=== PATIENT | female | born 1950 | race Caucasian/White ===

== ENCOUNTER 2019-10-15 14:51 | Observation (INO) ==
[2019-10-15 15:37] LABS: Basophils % 0.1 %; Eosinophils # 0.1 K/mcL (0.0-0.6); Eosinophils % 0.6 %; Hemoglobin 6.6 g/dL (11.5-15.4); Immature Granulocytes % 0.3 % (0-4); Lymphocytes # 1.2 K/mcL (0.6-4.6); Lymphocytes % 15.5 %; Mean Corpuscular HGB Conc 24.4 g/dL (31.6-35.5); Mean Corpuscular Hemoglobin 16.5 pg (28.0-33.3); Mean Corpuscular Volume 67.7 fL (83.0-100.0); Mean Platelet Volume 9.6 fL (9.4-12.4); Monocytes # 0.7 K/mcL (0.0-1.3); Monocytes % 8.3 %; Platelet Count 538 K/mcL (140-400); Red Blood Count 3.99 M/mcL (3.82-4.97); Red Cell Distribution Width 19.9 % (11.5-14.5); Segmented Neutrophils % 75.2 %
[2019-10-15 15:52] LABS: BUN/Creatinine Ratio 13 (6-26); Blood Urea Nitrogen 8 mg/dL (8-23); Calcium 8.6 mg/dL (8.6-10.3); Carbon Dioxide 28 mEq/L (23-29); Chloride 99 mEq/L (98-107); Glucose 115 mg/dL (70-105); Osmolality,Calculated 277 (280-300); Potassium 2.5 mEq/L (3.5-5.1); Sodium 134 mEq/L (136-145); eGFR For African Americans > 60 (> 60); eGFR For Non-African Americans > 60 (> 60)
[2019-10-15] MEDS ORDERED: Potassium Effervescent 25 MEQ TABLET.EFF PO ONE (15:53)
[2019-10-15] MEDS ORDERED: Potassium Chloride 40 MEQ, Lidocaine 1% 2 ML in 0.9 % Sodium Chloride 500 ML IVPB ONE (15:53)
[2019-10-15 16:05] LABS: Hypochromasia Present (Not Present); Platelet Estimate Normal (Normal)
[2019-10-15 16:06] LABS: Anisocytosis 2+ (Not Present); Macrocytosis Present (Not Present); Microcytosis Present (Not Present); Ovalocytes 1+ (Not Present); Poikilocytosis 1+ (Not Present)
[2019-10-15 16:12] LABS: Magnesium 2.1 mg/dL (1.6-2.6); Phosphorous 3.5 mg/dL (2.7-4.5)
[2019-10-15] MEDS ORDERED: SODIUM CHLORIDE/NAHCO3/KCL/PEG 4,000 ML SOLN.RECON PO ONE (16:29)
[2019-10-15] MEDS ORDERED: Naloxone 0.4 MG/ML INJ IVP PRN (16:30)
[2019-10-15] MEDS ORDERED: Ondansetron 4 MG/2 ML VIAL IVP PRN (16:30)
[2019-10-15 16:58] LABS: % Iron Saturation 3 % (15-50); Iron 13 mcg/dL (50-170); Transferrin 346 mg/dL (203-362)
[2019-10-15] MEDS ORDERED: 0.9 % Sodium Chloride 250 ML ONE (17:14)
[2019-10-15 17:16] LABS: Ferritin < 8 ng/mL (10-120)
[2019-10-15 17:22] LABS: Folate 11.3 ng/mL (3.0-16.0)
[2019-10-15] MEDS ORDERED: Potassium Chloride Elixir 20 MEQ/15 ML UDC PO ONE (18:00)
[2019-10-15] MEDS: Cyanocobalamin (B-12) 1,000 MCG/ML VIAL SQ SCH (19:05)
[2019-10-15] MEDS ORDERED: Iron Sucrose Complex 400 MG in 0.9 % Sodium Chloride 250 ML IVPB ONE (19:15)
[2019-10-15] MEDS: Pantoprazole 40 MG VIAL IVP SCH (21:56)
[2019-10-15] MEDS ORDERED: *HR* HYDROmorphone (PF) 1 MG/ML SYRINGE IVP PRN (23:44)
[2019-10-16 00:46] LABS: Hematocrit 29.4 % (35.3-44.9); Hemoglobin 7.6 g/dL (11.5-15.4)
[2019-10-16 05:04] LABS: Eosinophils % 0.8 %; Hemoglobin 7.8 g/dL (11.5-15.4)
[2019-10-16 05:05] LABS: Basophils % 0.3 %; Eosinophils # 0.1 K/mcL (0.0-0.6); Hematocrit 30.4 % (35.3-44.9); Immature Granulocytes % 0.8 % (0-4); Lymphocytes # 1.4 K/mcL (0.6-4.6); Mean Corpuscular HGB Conc 25.7 g/dL (31.6-35.5); Mean Corpuscular Hemoglobin 18.3 pg (28.0-33.3); Mean Corpuscular Volume 71.2 fL (83.0-100.0); Mean Platelet Volume 9.5 fL (9.4-12.4); Monocytes # 0.7 K/mcL (0.0-1.3); Monocytes % 9.1 %; Platelet Count 492 K/mcL (140-400); Red Blood Count 4.27 M/mcL (3.82-4.97); Red Cell Distribution Width 21.7 % (11.5-14.5); White Blood Count 7.8 K/mcL (4.3-11.1)
[2019-10-16 05:15] LABS: Neutrophils # 5.5 K/mcL (1.6-8.9)
[2019-10-16] MEDS: Pantoprazole 40 MG VIAL IVP SCH ×2 (05:28→17:18)
[2019-10-16 05:30] LABS: BUN/Creatinine Ratio 9 (6-26); Blood Urea Nitrogen 5 mg/dL (8-23); Calcium 8.1 mg/dL (8.6-10.3); Carbon Dioxide 22 mEq/L (23-29); Chloride 109 mEq/L (98-107); Glucose 99 mg/dL (70-105); Osmolality,Calculated 285 (280-300); Potassium 3.8 mEq/L (3.5-5.1); Sodium 139 mEq/L (136-145); eGFR For African Americans > 60 (> 60); eGFR For Non-African Americans > 60 (> 60)
[2019-10-16 05:44] LABS: Anisocytosis 1+ (Not Present); Hypochromasia Present (Not Present); Poikilocytosis 1+ (Not Present)
[2019-10-16 05:45] LABS: Ovalocytes 1+ (Not Present); Polychromasia 1+ (Not Present)
[2019-10-16] MEDS ORDERED: Acetaminophen IV 1,000 MG/100 ML INFUS..BTL IVPB ONE (05:45)
[2019-10-16 08:27] LABS: Hematocrit 26.4 % (35.3-44.9)
[2019-10-16] MEDS ORDERED: *HR* HYDROcodone/Acet 5/325 mg TABLET PO PRN (10:49)
[2019-10-16] MEDS: Cyanocobalamin (B-12) 1,000 MCG/ML VIAL SQ SCH (10:50)
[2019-10-16 11:53] LABS: Adenovirus Not Detected (Not Detect); Bordetella Pertussis Not Detected (Not Detect); Chlamydophila pneumoniae Not Detected (Not Detect); Coronavirus 229E Not Detected (Not Detect); Coronavirus HKU1 Not Detected (Not Detect); Coronavirus NL63 Not Detected (Not Detect); Coronavirus OC43 Not Detected (Not Detect); Human Metapneumovirus Not Detected (Not Detect); Human Rhinovirus/Enterovirus Not Detected (Not Detect); Influenza A Subtype 2009 H1 Not Detected (Not Detect); Influenza B Not Detected (Not Detect); Mycoplasma pneumoniae Not Detected (Not Detect); Parainfluenza Virus 1 Not Detected (Not Detect); Parainfluenza Virus 2 Not Detected (Not Detect); Parainfluenza Virus 3 Not Detected (Not Detect); Parainfluenza Virus 4 Not Detected (Not Detect); Respiratory Syncytial Virus Not Detected (Not Detect); SARS-CoV-2 Not Detected (Not Detect)
[2019-10-16 13:40] LABS: Hematocrit 27.2 % (35.3-44.9); Hemoglobin 7.3 g/dL (11.5-15.4)
[2019-10-16 19:42] LABS: Hematocrit 31.1 % (35.3-44.9); Hemoglobin 7.9 g/dL (11.5-15.4)
[2019-10-17 02:14] LABS: Hematocrit 27.5 % (35.3-44.9); Hemoglobin 7.3 g/dL (11.5-15.4)
[2019-10-17] MEDS: Pantoprazole 40 MG VIAL IVP SCH (05:31)
[2019-10-17 07:27] LABS: Hematocrit 30.8 % (35.3-44.9); Hemoglobin 7.9 g/dL (11.5-15.4)
[2019-10-17] MEDS ORDERED: *HR* Propofol 200 MG/20 ML VIAL IVP ONE ×3 (10:33→11:15)
[2019-10-17] MEDS ORDERED: Lidocaine -MPF 2% 2 ML VIAL ONE (10:57)
[2019-10-17] MEDS: Cyanocobalamin (B-12) 1,000 MCG/ML VIAL SQ SCH (13:15)
[2019-10-17 14:45] VITALS: BP 127/72
== END 2019-10-17 14:22 | disposition home or self-care (01) ==
LOC: 3ANU 14:51 → EMEROOARM 14:51 → 3ANU 18:10
PROVIDERS: ADMIT Internal Medicine; ATTEND Internal Medicine
PROC: ENDOORB (2019-10-17 09:00)

== ENCOUNTER 2020-09-30 12:49 | Inpatient (IN) ==
[2020-09-30 13:24] LABS: Hematocrit 41.9 % (35.3-44.9); Hemoglobin 13.7 g/dL (11.5-15.4); Mean Corpuscular HGB Conc 32.7 g/dL (31.6-35.5); Mean Corpuscular Hemoglobin 28.7 pg (28.0-33.3); Mean Corpuscular Volume 87.7 fL (83.0-100.0); Mean Platelet Volume 10.3 fL (9.4-12.4); Platelet Count 241 K/mcL (140-400); Red Blood Count 4.78 M/mcL (3.82-4.97); Red Cell Distribution Width 13.5 % (11.5-14.5)
[2020-09-30 13:27] LABS: White Blood Count 20.4 K/mcL (4.3-11.1)
[2020-09-30 13:43] LABS: BUN/Creatinine Ratio 15 (6-26); Blood Urea Nitrogen 13 mg/dL (8-23); Calcium 8.4 mg/dL (8.6-10.3); Carbon Dioxide 20 mEq/L (23-29); Chloride 101 mEq/L (98-107); Glucose 114 mg/dL (70-105); Osmolality,Calculated 277 (280-300); Potassium 3.4 mEq/L (3.5-5.1); Sodium 133 mEq/L (136-145); eGFR For African Americans > 60 (> 60); eGFR For Non-African Americans > 60 (> 60)
[2020-09-30 13:48] LABS: Lymphocytes # 3.7 K/mcL (0.6-4.6); Monocytes # 0.8 K/mcL (0.0-1.3); Neutrophils # 15.9 K/mcL (1.6-8.9); Platelet Estimate Normal (Normal)
[2020-09-30 14:01] LABS: Troponin I 0.06 ng/mL (< 0.04)
[2020-09-30] MEDS ORDERED: cefTRIAXone 1,000 MG in 0.9 % Sodium Chloride Mini Bag 100 ML IVPB ONE (14:17)
[2020-09-30] MEDS ORDERED: Azithromycin 500 MG in 0.9 % Sodium Chloride 250 ML IVPB ONE (14:17)
[2020-09-30] MEDS ORDERED: 0.9 % Sodium Chloride 1,000 ML IVC ONE (15:27)
[2020-09-30] MEDS ORDERED: Naloxone 0.4 MG/ML INJ IVP PRN (16:37)
[2020-09-30] MEDS ORDERED: Melatonin 3 MG TABLET PO PRN (16:37)
[2020-09-30] MEDS ORDERED: Perflutren Lipid Microsphere 1.3 ML in 0.9 % Sodium Chloride 8.7 ML IVP PRN (16:47)
[2020-09-30] MEDS ORDERED: Potassium Chloride 20 MEQ, Lidocaine 1% 2 ML in 0.9 % Sodium Chloride 250 ML IVPB ONE (16:52)
[2020-09-30] MEDS ORDERED: Potassium Chloride Elixir 20 MEQ/15 ML UDC PO ONE (16:52)
[2020-09-30 17:13] LABS: Magnesium 1.8 mg/dL (1.6-2.6); Phosphorous 2.6 mg/dL (2.7-4.5)
[2020-09-30 18:35] LABS: Influenza A PCR Negative (Negative); Influenza B PCR Negative (Negative); Resp. Syncytial Virus PCR Negative (Negative)
[2020-09-30 18:35] LABS: Procalcitonin 1.96 ng/mL (0.00-0.15)
[2020-09-30 18:36] LABS: SARS-CoV-2 by PCR (In House) Negative (Negative)
[2020-09-30 18:59] LABS: Vitamin B12 > 1500 pg/mL (250-1100)
[2020-09-30] MEDS: *HR* Heparin 5,000 UNIT/ML VIAL SQ SCH (20:25)
[2020-09-30 20:30] LABS: Bacteria,Urine Moderate per hpf (None-Few); Bilirubin,Urine Negative (Negative); Blood,Urine Small (Negative); Clarity,Urine Clear (Clear); Color,Urine Yellow (Yellow); Glucose,Urine (UA) Normal (Normal); Hyaline Casts,Urine Few per lpf (None Seen); Ketones,Urine 60 mg/dL (Negative); Leukocyte Esterase,Urine Moderate (Negative); Mucus,Urine Few per lpf (None-Few); Nitrite,Urine Positive (Negative); Protein,Urine 30 mg/dL (Neg-Trace); RBC,Urine 0-3 per hpf (0-3); Specific Gravity,Urine 1.017 (1.010-1.025); Urobilinogen,Urine Normal (Normal); WBC,Urine 15-30 per hpf (0-3)
[2020-09-30] MEDS: *HR* OxyCODONE Immed Rel 5 MG TABLET PO PRN (21:42)
[2020-10-01] MEDS ORDERED: Acetaminophen 325 MG TABLET PO PRN (00:14)
[2020-10-01 01:35] LABS: Basophils # 0.1 K/mcL (0.0-0.2); Basophils % 0.3 %; Eosinophils % 0.2 %; Hematocrit 40.3 % (35.3-44.9); Hemoglobin 12.6 g/dL (11.5-15.4); Immature Granulocytes % 0.7 % (0-4); Lymphocytes % 3.8 %; Mean Corpuscular HGB Conc 31.3 g/dL (31.6-35.5); Mean Corpuscular Hemoglobin 27.8 pg (28.0-33.3); Mean Corpuscular Volume 88.8 fL (83.0-100.0); Mean Platelet Volume 10.5 fL (9.4-12.4); Monocytes # 1.6 K/mcL (0.0-1.3); Monocytes % 6.4 %; Platelet Count 235 K/mcL (140-400); Red Blood Count 4.54 M/mcL (3.82-4.97); Red Cell Distribution Width 13.5 % (11.5-14.5); Segmented Neutrophils % 88.6 %
[2020-10-01 01:40] LABS: Eosinophils # 0.1 K/mcL (0.0-0.6); Neutrophils # 22.2 K/mcL (1.6-8.9)
[2020-10-01 02:03] LABS: BUN/Creatinine Ratio 16 (6-26); Blood Urea Nitrogen 12 mg/dL (8-23); Calcium 7.8 mg/dL (8.6-10.3); Carbon Dioxide 16 mEq/L (23-29); Chloride 106 mEq/L (98-107); Glucose 108 mg/dL (70-105); Iron < 10 mcg/dL (50-170); Osmolality,Calculated 278 (280-300); Potassium 3.9 mEq/L (3.5-5.1); Sodium 134 mEq/L (136-145); eGFR For African Americans > 60 (> 60); eGFR For Non-African Americans > 60 (> 60)
[2020-10-01 03:07] LABS: Transferrin 189 mg/dL (203-362)
[2020-10-01] MEDS ORDERED: *HR* Metoprolol 5 MG/5 ML VIAL IVP ONE ×3 (04:04→14:09)
[2020-10-01] MEDS: *HR* Heparin 5,000 UNIT/ML VIAL SQ SCH ×2 (05:32→13:48)
[2020-10-01] MEDS ORDERED: 0.9 % Sodium Chloride 1,000 ML IVC SCH (07:45)
[2020-10-01] MEDS ORDERED: cefTRIAXone 1,000 MG in Water for inj. (sterile) 10 ML IVP SCH (09:00)
[2020-10-01] MEDS ORDERED: Azithromycin 250 MG TABLET PO SCH (09:00)
[2020-10-01] MEDS: amLODIPine 5 MG TABLET PO SCH (09:24)
[2020-10-01] MEDS ORDERED: Furosemide 20 MG/2 ML VIAL IVP ONE (10:52)
[2020-10-01] MEDS: Ipratropium/Albuterol Neb 3 ML IH SCH ×3 (13:34→21:47)
[2020-10-01] MEDS ORDERED: *HR* Adenosine 6 MG/2 ML VIAL IVP ONE ×2 (14:11→14:12)
[2020-10-01] MEDS ORDERED: Perflutren Lipid Microsphere 1.3 ML in 0.9 % Sodium Chloride 8.7 ML IVP PRN (14:18)
[2020-10-01] MEDS ORDERED: *HR* Heparin 5,000 UNIT/ML VIAL IVP PRN (17:48)
[2020-10-01] MEDS ORDERED: *HR* Heparin 5,000 UNIT/ML VIAL IVP ONE (17:48)
[2020-10-01] MEDS ORDERED: Doxycycline 100 MG in 0.9 % Sodium Chloride Mini Bag 100 ML IVPB SCH (18:00)
[2020-10-01 18:50] LABS: Heparin anti-factor XA UFH < 0.04 IU/mL (0.30-0.70)
[2020-10-01 18:51] LABS: INR 1.3; Prothrombin Time 14.5 Seconds (9.4-12.1)
[2020-10-01] MEDS: Heparin 25,000UNIT/250ML 1/2NS 25,000 UNIT/250 ML IV.SOLN IVC SCH (20:04)
[2020-10-01] MEDS: *HR* OxyCODONE Immed Rel 5 MG TABLET PO PRN (21:43)
[2020-10-02 02:13] LABS: Red Cell Distribution Width 13.6 % (11.5-14.5)
[2020-10-02 02:14] LABS: Hematocrit 41.5 % (35.3-44.9); Hemoglobin 13.3 g/dL (11.5-15.4); Mean Corpuscular Hemoglobin 27.5 pg (28.0-33.3); Mean Corpuscular Volume 85.7 fL (83.0-100.0); Mean Platelet Volume 10.7 fL (9.4-12.4); Platelet Count 255 K/mcL (140-400); Red Blood Count 4.84 M/mcL (3.82-4.97)
[2020-10-02 02:25] LABS: White Blood Count 39.8 K/mcL (4.3-11.1)
[2020-10-02 02:32] LABS: BUN/Creatinine Ratio 21 (6-26); Blood Urea Nitrogen 14 mg/dL (8-23); Calcium 7.8 mg/dL (8.6-10.3); Carbon Dioxide 16 mEq/L (23-29); Chloride 104 mEq/L (98-107); Glucose 146 mg/dL (70-105); Osmolality,Calculated 279 (280-300); Potassium 3.5 mEq/L (3.5-5.1); Sodium 133 mEq/L (136-145); eGFR For African Americans > 60 (> 60); eGFR For Non-African Americans > 60 (> 60)
[2020-10-02] MEDS: *HR* Heparin 5,000 UNIT/ML VIAL IVP PRN (03:43)
[2020-10-02] MEDS: Cefepime HCl 1,000 MG in Water for inj. (sterile) 10 ML IVP SCH ×3 (03:44→18:18)
[2020-10-02] MEDS: Ipratropium/Albuterol Neb 3 ML IH SCH ×3 (05:15→15:19)
[2020-10-02] MEDS: amLODIPine 5 MG TABLET PO SCH (07:25)
[2020-10-02] MEDS ORDERED: Isovue-370 500 ML BOTTLE IVP ONE (11:29)
[2020-10-02 13:00] LABS: Campylobacter by PCR Not detected (Not detect); Enteroaggregative E.coli(EAEC) Not detected (Not detect); Enteropathogenic E.coli(EPEC) Not detected (Not detect); Enterotoxigenic E.coli (ETEC) DETECTED (Not detect); Plesiomonas shigelloides PCR Not detected (Not detect); Salmonella PCR Not detected (Not detect); Vibrio PCR Not detected (Not detect); Vibrio cholerae PCR Not detected (Not detect); Yersinia enterocolitica PCR Not detected (Not detect)
[2020-10-02 13:01] LABS: Adenovirus F 40/41 PCR Not detected (Not detect); Astrovirus PCR Not detected (Not detect); Cryptosporidium by PCR Not detected (Not detect); Cyclospora cayetanensis PCR Not detected (Not detect); E. coli O157 by PCR Not detected (Not detect); Entamoeba histolytica PCR Not detected (Not detect); Giardia lamblia PCR Not detected (Not detect); Norovirus GI/GII PCR Not detected (Not detect); Rotavirus A PCR Not detected (Not detect); Sapovirus PCR Not detected (Not detect); Shig/EnteroinvasiveE coli EIEC Not detected (Not detect); Shigalike tox-prod E coli STEC DETECTED (Not detect)
[2020-10-02] MEDS: *HR* Metoprolol 5 MG/5 ML VIAL IVP PRN ×2 (13:02→17:02)
[2020-10-02 13:03] LABS: C.difficile Toxin A/B Gene PCR DETECTED (Not detect)
[2020-10-02] MEDS ORDERED: 0.9 % Sodium Chloride 1,000 ML ONE (16:21)
[2020-10-02] MEDS ORDERED: Potassium Chloride 40 MEQ, Lidocaine 1% 2 ML in 0.9 % Sodium Chloride 500 ML IVPB ONE (17:32)
[2020-10-02] MEDS ORDERED: Ipratropium Neb 0.5 MG NEBULIZER IH PRN (17:33)
[2020-10-02] MEDS: Aspirin Enteric Coated 81 MG Tablet PO SCH (17:58)
[2020-10-02] MEDS: Vancomycin Oral Soln 125 MG/2.5 ML UDC PO SCH ×3 (17:59→20:53)
[2020-10-02] MEDS ORDERED: 0.9 % Sodium Chloride 1,000 ML IVC SCH (18:30)
[2020-10-02] MEDS: Heparin 25,000UNIT/250ML 1/2NS 25,000 UNIT/250 ML IV.SOLN IVC SCH (19:16)
[2020-10-03 00:42] LABS: Basophils % 0.5 %; Eosinophils % 0.2 %; Mean Corpuscular Volume 87.4 fL (83.0-100.0); Segmented Neutrophils % 88.2 %
[2020-10-03 00:45] LABS: Basophils # 0.2 K/mcL (0.0-0.2); Eosinophils # 0.1 K/mcL (0.0-0.6); Hematocrit 36.6 % (35.3-44.9); Hemoglobin 11.9 g/dL (11.5-15.4); Immature Granulocytes % 1.4 % (0-4); Lymphocytes # 1.4 K/mcL (0.6-4.6); Lymphocytes % 4.1 %; Mean Corpuscular HGB Conc 32.5 g/dL (31.6-35.5); Mean Corpuscular Hemoglobin 28.4 pg (28.0-33.3); Mean Platelet Volume 10.8 fL (9.4-12.4); Monocytes # 1.9 K/mcL (0.0-1.3); Monocytes % 5.6 %; Neutrophils # 29.3 K/mcL (1.6-8.9); Platelet Count 223 K/mcL (140-400); Red Blood Count 4.19 M/mcL (3.82-4.97)
[2020-10-03 00:50] LABS: White Blood Count 33.2 K/mcL (4.3-11.1)
[2020-10-03] MEDS: *HR* Heparin 5,000 UNIT/ML VIAL IVP PRN (01:00)
[2020-10-03] MEDS: Cefepime HCl 1,000 MG in Water for inj. (sterile) 10 ML IVP SCH ×2 (02:16→10:02)
[2020-10-03] MEDS ORDERED: Vancomycin 1,000 MG VIAL ONE (02:17)
[2020-10-03] MEDS: *HR* Heparin 5,000 UNIT/ML VIAL SQ SCH ×3 (05:26→22:52)
[2020-10-03 07:51] LABS: Alanine Aminotransferase 10 Units/L (7-52); Albumin 2.4 g/dL (3.5-5.7); Albumin/Globulin Ratio 1.1 (1.1-2.2); Alkaline Phosphatase 95 Units/L (34-104); Aspartate Amino Transferase 12 Units/L (13-39); BUN/Creatinine Ratio 18 (6-26); Bilirubin,Total 0.4 mg/dL (0.3-1.0); Blood Urea Nitrogen 12 mg/dL (8-23); Calcium 7.1 mg/dL (8.6-10.3); Carbon Dioxide 18 mEq/L (23-29); Chloride 108 mEq/L (98-107); Globulin 2.1 g/dL (2.4-3.5); Glucose 112 mg/dL (70-105); Osmolality,Calculated 277 (280-300); Potassium 3.3 mEq/L (3.5-5.1); Sodium 133 mEq/L (136-145); Total Protein 4.5 g/dL (6.4-8.9); eGFR For African Americans > 60 (> 60); eGFR For Non-African Americans > 60 (> 60)
[2020-10-03] MEDS ORDERED: 0.9 % Sodium Chloride 1,000 ML IVC SCH (09:30)
[2020-10-03] MEDS: amLODIPine 5 MG TABLET PO SCH (10:02)
[2020-10-03] MEDS: Aspirin Enteric Coated 81 MG Tablet PO SCH (10:02)
[2020-10-03] MEDS: Vancomycin Oral Soln 125 MG/2.5 ML UDC PO SCH ×4 (10:03→22:51)
[2020-10-03] MEDS: Lactobacillus 1 EACH CAP.SPRINK PO SCH ×2 (11:40→22:49)
[2020-10-04] MEDS: *HR* Heparin 5,000 UNIT/ML VIAL SQ SCH ×3 (06:52→21:47)
[2020-10-04] MEDS: Lactobacillus 1 EACH CAP.SPRINK PO SCH ×2 (09:56→21:48)
[2020-10-04] MEDS: amLODIPine 5 MG TABLET PO SCH (09:56)
[2020-10-04] MEDS: Aspirin Enteric Coated 81 MG Tablet PO SCH (09:56)
[2020-10-04] MEDS: Vancomycin Oral Soln 125 MG/2.5 ML UDC PO SCH ×4 (09:57→21:48)
[2020-10-04] MEDS ORDERED: Potassium Chloride Elixir 20 MEQ/15 ML UDC PO ONE (14:58)
[2020-10-04] MEDS ORDERED: Azithromycin 250 MG TABLET PO ONE (15:00)
[2020-10-04 16:22] LABS: Basophils % 0.3 %; Eosinophils # 0.4 K/mcL (0.0-0.6); Eosinophils % 2.9 %; Hemoglobin 11.2 g/dL (11.5-15.4); Immature Granulocytes % 2.1 % (0-4); Lymphocytes # 1.1 K/mcL (0.6-4.6); Lymphocytes % 8.1 %; Mean Corpuscular Hemoglobin 27.7 pg (28.0-33.3); Mean Corpuscular Volume 86.4 fL (83.0-100.0); Mean Platelet Volume 10.8 fL (9.4-12.4); Monocytes % 7.6 %; Neutrophils # 10.7 K/mcL (1.6-8.9); Platelet Count 260 K/mcL (140-400); Red Blood Count 4.05 M/mcL (3.82-4.97)
[2020-10-04 16:23] LABS: White Blood Count 13.6 K/mcL (4.3-11.1)
[2020-10-04 16:38] LABS: BUN/Creatinine Ratio 16 (6-26); Blood Urea Nitrogen 8 mg/dL (8-23); Calcium 7.2 mg/dL (8.6-10.3); Carbon Dioxide 20 mEq/L (23-29); Chloride 104 mEq/L (98-107); Glucose 116 mg/dL (70-105); Osmolality,Calculated 269 (280-300); Potassium 2.9 mEq/L (3.5-5.1); Sodium 130 mEq/L (136-145); eGFR For African Americans > 60 (> 60); eGFR For Non-African Americans > 60 (> 60)
[2020-10-05 02:43] LABS: Basophils # 0.1 K/mcL (0.0-0.2); Basophils % 0.4 %; Eosinophils # 0.3 K/mcL (0.0-0.6); Eosinophils % 2.2 %; Hematocrit 37.6 % (35.3-44.9); Hemoglobin 11.8 g/dL (11.5-15.4); Immature Granulocytes % 1.5 % (0-4); Lymphocytes # 1.1 K/mcL (0.6-4.6); Lymphocytes % 7.9 %; Mean Corpuscular HGB Conc 31.4 g/dL (31.6-35.5); Mean Corpuscular Hemoglobin 27.3 pg (28.0-33.3); Mean Corpuscular Volume 86.8 fL (83.0-100.0); Mean Platelet Volume 10.9 fL (9.4-12.4); Monocytes # 1.1 K/mcL (0.0-1.3); Monocytes % 8.4 %; Neutrophils # 10.7 K/mcL (1.6-8.9); Platelet Count 265 K/mcL (140-400); Red Blood Count 4.33 M/mcL (3.82-4.97); Red Cell Distribution Width 13.9 % (11.5-14.5); Segmented Neutrophils % 79.6 %; White Blood Count 13.4 K/mcL (4.3-11.1)
[2020-10-05 03:04] LABS: BUN/Creatinine Ratio 13 (6-26); Blood Urea Nitrogen 6 mg/dL (8-23); Calcium 7.3 mg/dL (8.6-10.3); Carbon Dioxide 16 mEq/L (23-29); Chloride 105 mEq/L (98-107); Glucose 98 mg/dL (70-105); Osmolality,Calculated 272 (280-300); Potassium 2.8 mEq/L (3.5-5.1); Sodium 132 mEq/L (136-145); eGFR For African Americans > 60 (> 60); eGFR For Non-African Americans > 60 (> 60)
[2020-10-05] MEDS: *HR* Heparin 5,000 UNIT/ML VIAL SQ SCH ×3 (05:01→20:54)
[2020-10-05] MEDS: Aspirin Enteric Coated 81 MG Tablet PO SCH (09:29)
[2020-10-05] MEDS: Vancomycin Oral Soln 125 MG/2.5 ML UDC PO SCH ×4 (09:29→20:54)
[2020-10-05] MEDS: amLODIPine 5 MG TABLET PO SCH (09:29)
[2020-10-05] MEDS: Lactobacillus 1 EACH CAP.SPRINK PO SCH ×2 (09:29→20:54)
[2020-10-05] MEDS ORDERED: POTASSIUM CHLORIDE IN 0.9%NACL 40 MEQ/1,000 ML IV.SOLN IV STA (12:10)
[2020-10-05] MEDS: Potassium Chloride 40 MEQ, Lidocaine 1% 2 ML in 0.9 % Sodium Chloride 500 ML IVPB SCH ×2 (13:30→17:55)
[2020-10-05 14:22] LABS: Troponin I 0.42 ng/mL (< 0.04)
[2020-10-05 14:31] LABS: Magnesium 1.8 mg/dL (1.6-2.6); Phosphorous 1.8 mg/dL (2.7-4.5)
[2020-10-05] MEDS: Cholestyramine 4 GM POWD.PACK PO SCH (17:58)
[2020-10-06] MEDS: *HR* Heparin 5,000 UNIT/ML VIAL SQ SCH ×3 (05:17→22:36)
[2020-10-06] MEDS: Vancomycin Oral Soln 125 MG/2.5 ML UDC PO SCH ×4 (09:03→22:36)
[2020-10-06] MEDS: amLODIPine 5 MG TABLET PO SCH (09:03)
[2020-10-06] MEDS: Cholestyramine 4 GM POWD.PACK PO SCH ×2 (09:03→17:12)
[2020-10-06] MEDS: Lactobacillus 1 EACH CAP.SPRINK PO SCH ×2 (09:03→22:35)
[2020-10-06] MEDS: Aspirin Enteric Coated 81 MG Tablet PO SCH (09:03)
[2020-10-06] MEDS: Nystatin POWDER 30 GM BOTTLE TP SCH ×2 (17:12→22:36)
[2020-10-06 20:02] LABS: Basophils # 0.1 K/mcL (0.0-0.2); Basophils % 0.3 %; Eosinophils # 0.4 K/mcL (0.0-0.6); Eosinophils % 1.7 %; Hemoglobin 11.9 g/dL (11.5-15.4); Immature Granulocytes % 1.4 % (0-4); Lymphocytes # 1.5 K/mcL (0.6-4.6); Lymphocytes % 7.3 %; Mean Corpuscular HGB Conc 32.2 g/dL (31.6-35.5); Mean Corpuscular Hemoglobin 27.8 pg (28.0-33.3); Mean Corpuscular Volume 86.4 fL (83.0-100.0); Mean Platelet Volume 10.3 fL (9.4-12.4); Monocytes # 1.7 K/mcL (0.0-1.3); Neutrophils # 16.8 K/mcL (1.6-8.9); Platelet Count 308 K/mcL (140-400); Red Blood Count 4.28 M/mcL (3.82-4.97); Red Cell Distribution Width 14.3 % (11.5-14.5); Segmented Neutrophils % 81.3 %
[2020-10-06 20:06] LABS: White Blood Count 20.7 K/mcL (4.3-11.1)
[2020-10-06 20:23] LABS: BUN/Creatinine Ratio 17 (6-26); Blood Urea Nitrogen 8 mg/dL (8-23); Calcium 7.6 mg/dL (8.6-10.3); Carbon Dioxide 23 mEq/L (23-29); Chloride 105 mEq/L (98-107); Glucose 102 mg/dL (70-105); Osmolality,Calculated 275 (280-300); Potassium 3.1 mEq/L (3.5-5.1); Sodium 133 mEq/L (136-145); eGFR For African Americans > 60 (> 60); eGFR For Non-African Americans > 60 (> 60)
[2020-10-06] MEDS: *HR* OxyCODONE Immed Rel 5 MG TABLET PO PRN (22:35)
[2020-10-07] MEDS: *HR* Heparin 5,000 UNIT/ML VIAL SQ SCH (06:17)
[2020-10-07 07:30] LABS: Basophils % 0.2 %; Eosinophils # 0.4 K/mcL (0.0-0.6); Eosinophils % 2.2 %; Hematocrit 34.5 % (35.3-44.9); Hemoglobin 11.3 g/dL (11.5-15.4); Immature Granulocytes % 1.5 % (0-4); Lymphocytes # 1.7 K/mcL (0.6-4.6); Lymphocytes % 10.3 %; Mean Corpuscular HGB Conc 32.8 g/dL (31.6-35.5); Mean Corpuscular Hemoglobin 28.3 pg (28.0-33.3); Mean Corpuscular Volume 86.3 fL (83.0-100.0); Mean Platelet Volume 10.9 fL (9.4-12.4); Monocytes # 1.7 K/mcL (0.0-1.3); Monocytes % 9.8 %; Neutrophils # 12.9 K/mcL (1.6-8.9); Platelet Count 325 K/mcL (140-400)
[2020-10-07 07:38] VITALS: BP 142/68; PULSE 78; TEMP 98.2; O2SAT 95
[2020-10-07 07:56] LABS: BUN/Creatinine Ratio 21 (6-26); Blood Urea Nitrogen 10 mg/dL (8-23); Calcium 7.6 mg/dL (8.6-10.3); Carbon Dioxide 21 mEq/L (23-29); Chloride 105 mEq/L (98-107); Glucose 98 mg/dL (70-105); Osmolality,Calculated 275 (280-300); Potassium 3.3 mEq/L (3.5-5.1); Sodium 133 mEq/L (136-145); eGFR For African Americans > 60 (> 60); eGFR For Non-African Americans > 60 (> 60)
[2020-10-07] MEDS: Vancomycin Oral Soln 125 MG/2.5 ML UDC PO SCH (08:15)
[2020-10-07] MEDS: amLODIPine 5 MG TABLET PO SCH (08:15)
[2020-10-07] MEDS: Cholestyramine 4 GM POWD.PACK PO SCH (08:15)
[2020-10-07] MEDS: Aspirin Enteric Coated 81 MG Tablet PO SCH (08:15)
[2020-10-07] MEDS: Lactobacillus 1 EACH CAP.SPRINK PO SCH (08:15)
[2020-10-07] MEDS: Nystatin POWDER 30 GM BOTTLE TP SCH (08:16)
[2020-10-07 08:38] LABS: Troponin I 0.27 ng/mL (< 0.04)
[2020-10-07] MEDS ORDERED: Potassium Chloride Elixir 20 MEQ/15 ML UDC PO ONE (08:50)
== END 2020-10-07 10:11 | disposition home health service (06) | DRG 853 ==
LOC: 3BNU 12:49 → EMEROOARM 12:49 → 3BNU 18:04 → SUATTDRO 10-01 14:55 → 2NNU 10-02 19:49 → 2ANU 10-03 12:01
PROVIDERS: ADMIT Family Medicine; ATTEND Internal Medicine

== ENCOUNTER 2021-05-03 06:01 | Inpatient (IN) ==
[2021-05-03] MEDS ORDERED: CeFAZolin Syr 2,000MG/20 ML 2,000 MG/20 ML SYRINGE IVPB ONE (06:21)
[2021-05-03] MEDS ORDERED: Ringers Solution, Lactated 1,000 ML IVC SCH (06:30)
[2021-05-03] MEDS ORDERED: *HR* FentaNYL (PF) 100 MCG/2 ML VIAL IVP PRN (06:58)
[2021-05-03] MEDS ORDERED: Bupivacaine-MPF 0.25% 10 ML VIAL ONE (07:01)
[2021-05-03] MEDS ORDERED: Protamine Sulfate 50 MG/5 ML VIAL IVP ONE (07:01)
[2021-05-03] MEDS ORDERED: Heparin 1,000 UNITS/500 mL 1,000 ML ONE (07:01)
[2021-05-03] MEDS ORDERED: *HR* Vasopressin 20 UNIT/ML VIAL ONE (07:17)
[2021-05-03] MEDS ORDERED: NiCARdipine 2.5 MG/10 ML Syringe IVPB ONE (07:17)
[2021-05-03] MEDS ORDERED: *HR* Phenylephrine 10 MG/ML VIAL ONE (07:18)
[2021-05-03] MEDS ORDERED: Acetaminophen IV 1,000 MG/100 ML BAG IVPB ONE (07:18)
[2021-05-03] MEDS ORDERED: *HR* Remifentanil 2 MG VIAL IVP ONE (07:18)
[2021-05-03] MEDS ORDERED: *HR* Propofol 200 MG/20 ML VIAL IVP ONE (07:22)
[2021-05-03] MEDS ORDERED: *HR* Succinylcholine 200 MG/10 ML VIAL IVP ONE (07:23)
[2021-05-03] MEDS ORDERED: *HR* FentaNYL (PF) 100 MCG/2 ML VIAL ONE (07:23)
[2021-05-03] MEDS ORDERED: Lidocaine -MPF 2% 5 ML VIAL ONE (07:23)
[2021-05-03] MEDS ORDERED: Vancomycin 1,000 MG, Sodium Chloride IRRigation 1,000 ML IR ONE (07:45)
[2021-05-03] MEDS ORDERED: Lidocaine HCL 4 ML Topical Solution (Laryng-O-Jet Kit Sterile Pak) TP ONE (07:50)
[2021-05-03] MEDS ORDERED: EPHEDrine 50 MG/ML VIAL ONE (08:09)
[2021-05-03] MEDS ORDERED: *HR* Heparin 5,000 UNIT/ML VIAL ONE (08:39)
[2021-05-03] MEDS ORDERED: Ondansetron 4 MG/2 ML VIAL ONE (08:48)
[2021-05-03] MEDS ORDERED: Naloxone 0.4 MG/ML INJ IVP PRN (10:46)
[2021-05-03] MEDS ORDERED: Ondansetron 4 MG/2 ML VIAL IVP PRN (10:46)
[2021-05-03] MEDS ORDERED: *HR* Labetalol 20 MG/4 ML SYRINGE IVP PRN (10:46)
[2021-05-03] MEDS ORDERED: 0.9 % Sodium Chloride 1,000 ML IVC SCH (10:46)
[2021-05-03] MEDS: *HR* Metoprolol 5 MG/5 ML VIAL IVP SCH ×2 (11:19→17:03)
[2021-05-03] MEDS: amLODIPine 5 MG TABLET PO SCH (11:24)
[2021-05-03] MEDS: Acetaminophen 325 MG TABLET PO PRN ×2 (11:39→21:37)
[2021-05-03] MEDS: CeFAZolin 2 GM/120 ML BAG IVPB SCH ×2 (13:59→22:50)
[2021-05-03] MEDS: Iron Polysaccharide Complex 150 MG CAPSULE PO SCH (13:59)
[2021-05-04] MEDS: *HR* Metoprolol 5 MG/5 ML VIAL IVP SCH ×2 (00:15→05:57)
[2021-05-04] MEDS ORDERED: *HR* Heparin 5,000 UNIT/ML VIAL SQ SCH (06:00)
[2021-05-04 07:16] VITALS: BP 158/68; TEMP 97.7
[2021-05-04] MEDS: Iron Polysaccharide Complex 150 MG CAPSULE PO SCH (09:18)
[2021-05-04] MEDS: amLODIPine 5 MG TABLET PO SCH (09:18)
[2021-05-04] MEDS: Acetaminophen 325 MG TABLET PO PRN (09:19)
[2021-05-04 11:26] VITALS: PULSE 62; O2SAT 100
== END 2021-05-04 12:12 | disposition home or self-care (01) | DRG 39 ==
LOC: SAMDAY 06:01 → 2NNU 10:46
PROVIDERS: ADMIT Surgery; ATTEND Surgery

== ENCOUNTER 2021-07-23 09:13 | Observation (INO) ==
[2021-07-23] MEDS ORDERED: Iopamidol - 370 500 ML MLS IVP ONE (09:52)
[2021-07-23 10:10] LABS: Basophils % 0.5 %; Eosinophils # 0.2 K/mcL (0.0-0.6); Eosinophils % 2.7 %; Hematocrit 32.3 % (35.3-44.9); Hemoglobin 9.4 g/dL (11.5-15.4); Immature Granulocytes % 0.3 % (0-4); Lymphocytes # 1.2 K/mcL (0.6-4.6); Lymphocytes % 18.1 %; Mean Corpuscular HGB Conc 29.1 g/dL (31.6-35.5); Mean Corpuscular Hemoglobin 22.7 pg (28.0-33.3); Monocytes # 0.7 K/mcL (0.0-1.3); Monocytes % 10.8 %; Neutrophils # 4.3 K/mcL (1.6-8.9); Platelet Count 341 K/mcL (140-400); Red Blood Count 4.14 M/mcL (3.82-4.97); Red Cell Distribution Width 17.9 % (11.5-14.5); Segmented Neutrophils % 67.6 %; White Blood Count 6.4 K/mcL (4.3-11.1)
[2021-07-23 10:19] LABS: INR 1.1; Prothrombin Time 12.1 Seconds (9.4-12.1)
[2021-07-23 10:21] LABS: Activated Partial Thrombo Time 35.2 Seconds (26.0-36.0)
[2021-07-23 10:38] LABS: Alanine Aminotransferase 9 Units/L (7-52); Albumin 3.3 g/dL (3.5-5.7); Albumin/Globulin Ratio 1.5 (1.1-2.2); Alkaline Phosphatase 63 Units/L (34-104); Aspartate Amino Transferase 17 Units/L (13-39); BUN/Creatinine Ratio 9 (6-26); Bilirubin,Total 0.4 mg/dL (0.3-1.0); Blood Urea Nitrogen 8 mg/dL (8-23); Calcium 7.8 mg/dL (8.6-10.3); Carbon Dioxide 33 mEq/L (23-29); Chloride 93 mEq/L (98-107); Globulin 2.2 g/dL (2.4-3.5); Glucose 101 mg/dL (70-105); Lipase 63 Units/L (11-82); Osmolality,Calculated 280 (280-300); Potassium 1.9 mEq/L (3.5-5.1); Sodium 136 mEq/L (136-145); Total Protein 5.5 g/dL (6.4-8.9); Troponin I 0.12 ng/mL (< 0.04); eGFR For African Americans > 60 (> 60); eGFR For Non-African Americans > 60 (> 60)
[2021-07-23] MEDS ORDERED: *HR* Heparin 5,000 UNIT/ML VIAL IVP PRN ×2 (10:51)
[2021-07-23] MEDS ORDERED: *HR* Heparin 5,000 UNIT/ML VIAL IVP ONE (10:51)
[2021-07-23 10:57] LABS: Magnesium 1.8 mg/dL (1.6-2.6)
[2021-07-23 11:00] LABS: Heparin anti-factor XA UFH < 0.04 IU/mL (0.30-0.70)
[2021-07-23] MEDS ORDERED: Heparin 25,000UNIT/250ML 1/2NS 25,000 UNIT/250 ML IV.SOLN IVC SCH (11:00)
[2021-07-23] MEDS ORDERED: Potassium Effervescent 25 MEQ TABLET.EFF PO ONE (11:10)
[2021-07-23] MEDS ORDERED: Ondansetron 4 MG/2 ML VIAL IVP PRN (11:17)
[2021-07-23] MEDS ORDERED: Nitroglycerin 0.4 MG TAB.SUBL SL PRN (11:17)
[2021-07-23] MEDS ORDERED: Perflutren Lipid Microsphere 1.3 ML in 0.9 % Sodium Chloride 8.7 ML IVP PRN (11:17)
[2021-07-23] MEDS: Acetaminophen 325 MG TABLET PO PRN ×2 (13:31→19:15)
[2021-07-23] MEDS ORDERED: *HR* Metoprolol 5 MG/5 ML VIAL IVP ONE (14:11)
[2021-07-23] MEDS: amLODIPine 5 MG TABLET PO SCH (20:31)
[2021-07-23 20:37] LABS: % Iron Saturation 4 % (15-50); Iron 16 mcg/dL (50-170); Transferrin 309 mg/dL (203-362)
[2021-07-23 20:55] LABS: Ferritin 14 ng/mL (10-120)
[2021-07-24 04:22] LABS: Immature Granulocytes % 0.5 % (0-4); Red Cell Distribution Width 17.9 % (11.5-14.5)
[2021-07-24 04:24] LABS: Basophils % 0.9 %; Eosinophils # 0.3 K/mcL (0.0-0.6); Eosinophils % 7.1 %; Hematocrit 32.2 % (35.3-44.9); Lymphocytes # 1.2 K/mcL (0.6-4.6); Lymphocytes % 26.5 %; Mean Corpuscular Hemoglobin 22.4 pg (28.0-33.3); Mean Corpuscular Volume 80.3 fL (83.0-100.0); Mean Platelet Volume 9.9 fL (9.4-12.4); Monocytes # 0.5 K/mcL (0.0-1.3); Neutrophils # 2.4 K/mcL (1.6-8.9); Platelet Count 317 K/mcL (140-400); Red Blood Count 4.01 M/mcL (3.82-4.97); White Blood Count 4.4 K/mcL (4.3-11.1)
[2021-07-24 04:30] LABS: Prothrombin Time 11.6 Seconds (9.4-12.1)
[2021-07-24 04:45] LABS: Alanine Aminotransferase 8 Units/L (7-52); Albumin 3.1 g/dL (3.5-5.7); Albumin/Globulin Ratio 1.4 (1.1-2.2); Alkaline Phosphatase 62 Units/L (34-104); Aspartate Amino Transferase 19 Units/L (13-39); BUN/Creatinine Ratio 7 (6-26); Bilirubin,Total 0.5 mg/dL (0.3-1.0); Blood Urea Nitrogen 5 mg/dL (8-23); Calcium 7.9 mg/dL (8.6-10.3); Carbon Dioxide 31 mEq/L (23-29); Chloride 101 mEq/L (98-107); Globulin 2.2 g/dL (2.4-3.5); Glucose 83 mg/dL (70-105); Magnesium 2.1 mg/dL (1.6-2.6); Osmolality,Calculated 286 (280-300); Potassium 2.4 mEq/L (3.5-5.1); Sodium 140 mEq/L (136-145); Total Protein 5.3 g/dL (6.4-8.9); eGFR For African Americans > 60 (> 60); eGFR For Non-African Americans > 60 (> 60)
[2021-07-24] MEDS: amLODIPine 5 MG TABLET PO SCH (07:36)
[2021-07-24] MEDS: Aspirin 81 MG TAB.CHEW PO SCH (07:47)
[2021-07-24] MEDS ORDERED: amLODIPine 5 MG TABLET PO ONE (10:45)
[2021-07-24] MEDS: Acetaminophen 325 MG TABLET PO PRN (19:38)
[2021-07-25 03:40] LABS: Hematocrit 30.8 % (35.3-44.9); Hemoglobin 8.7 g/dL (11.5-15.4); Mean Corpuscular HGB Conc 28.2 g/dL (31.6-35.5); Mean Corpuscular Hemoglobin 22.6 pg (28.0-33.3); Mean Platelet Volume 10.3 fL (9.4-12.4); Platelet Count 317 K/mcL (140-400); Red Blood Count 3.85 M/mcL (3.82-4.97); Red Cell Distribution Width 17.8 % (11.5-14.5); White Blood Count 6.4 K/mcL (4.3-11.1)
[2021-07-25 04:00] LABS: BUN/Creatinine Ratio 12 (6-26); Blood Urea Nitrogen 9 mg/dL (8-23); Carbon Dioxide 25 mEq/L (23-29); Chloride 103 mEq/L (98-107); Glucose 97 mg/dL (70-105); Osmolality,Calculated 281 (280-300); Potassium 3.1 mEq/L (3.5-5.1); Sodium 136 mEq/L (136-145); eGFR For African Americans > 60 (> 60); eGFR For Non-African Americans > 60 (> 60)
[2021-07-25] MEDS: Acetaminophen 325 MG TABLET PO PRN ×2 (04:50→20:25)
[2021-07-25] MEDS: Aspirin 81 MG TAB.CHEW PO SCH (09:00)
[2021-07-25] MEDS: amLODIPine 5 MG TABLET PO SCH (09:01)
[2021-07-25] MEDS: Isosorbide MONOnitrate (24 HR) 30 MG TAB.ER.24H PO SCH (13:39)
[2021-07-26 03:58] LABS: Mean Corpuscular HGB Conc 28.1 g/dL (31.6-35.5)
[2021-07-26 03:59] LABS: Hematocrit 27.8 % (35.3-44.9); Hemoglobin 7.8 g/dL (11.5-15.4); Mean Corpuscular Hemoglobin 22.3 pg (28.0-33.3); Mean Corpuscular Volume 79.4 fL (83.0-100.0); Mean Platelet Volume 10.3 fL (9.4-12.4); Platelet Count 302 K/mcL (140-400); Red Cell Distribution Width 18.2 % (11.5-14.5); White Blood Count 5.8 K/mcL (4.3-11.1)
[2021-07-26 04:19] LABS: BUN/Creatinine Ratio 16 (6-26); Blood Urea Nitrogen 12 mg/dL (8-23); Calcium 7.9 mg/dL (8.6-10.3); Carbon Dioxide 24 mEq/L (23-29); Chloride 104 mEq/L (98-107); Glucose 100 mg/dL (70-105); Magnesium 1.9 mg/dL (1.6-2.6); Osmolality,Calculated 280 (280-300); Sodium 135 mEq/L (136-145); eGFR For African Americans > 60 (> 60); eGFR For Non-African Americans > 60 (> 60)
[2021-07-26] MEDS: Isosorbide MONOnitrate (24 HR) 30 MG TAB.ER.24H PO SCH (07:44)
[2021-07-26] MEDS: Aspirin 81 MG TAB.CHEW PO SCH (07:45)
[2021-07-26] MEDS: amLODIPine 5 MG TABLET PO SCH (07:45)
[2021-07-26] MEDS: Acetaminophen 325 MG TABLET PO PRN ×2 (07:45→21:09)
[2021-07-26] MEDS: tiZANidine 4 MG TABLET PO PRN ×2 (15:14→21:10)
[2021-07-26] MEDS: Pregabalin 25 MG CAPSULE PO SCH (21:09)
[2021-07-27 03:59] LABS: Mean Corpuscular Volume 79.8 fL (83.0-100.0)
[2021-07-27 04:01] LABS: Hematocrit 27.6 % (35.3-44.9); Hemoglobin 7.7 g/dL (11.5-15.4); Mean Corpuscular HGB Conc 27.9 g/dL (31.6-35.5); Mean Corpuscular Hemoglobin 22.3 pg (28.0-33.3); Mean Platelet Volume 10.2 fL (9.4-12.4); Platelet Count 287 K/mcL (140-400); Red Blood Count 3.46 M/mcL (3.82-4.97); Red Cell Distribution Width 18.3 % (11.5-14.5); White Blood Count 6.2 K/mcL (4.3-11.1)
[2021-07-27] MEDS: Acetaminophen 325 MG TABLET PO PRN (04:57)
[2021-07-27 06:21] LABS: BUN/Creatinine Ratio 14 (6-26); Blood Urea Nitrogen 9 mg/dL (8-23); Calcium 8.4 mg/dL (8.6-10.3); Carbon Dioxide 24 mEq/L (23-29); Chloride 109 mEq/L (98-107); Glucose 102 mg/dL (70-105); Osmolality,Calculated 285 (280-300); Potassium 4.1 mEq/L (3.5-5.1); Sodium 138 mEq/L (136-145); eGFR For African Americans > 60 (> 60); eGFR For Non-African Americans > 60 (> 60)
[2021-07-27] MEDS: Isosorbide MONOnitrate (24 HR) 30 MG TAB.ER.24H PO SCH (08:05)
[2021-07-27] MEDS: Pregabalin 25 MG CAPSULE PO SCH (08:06)
[2021-07-27] MEDS: amLODIPine 5 MG TABLET PO SCH (08:06)
[2021-07-27] MEDS: Aspirin 81 MG TAB.CHEW PO SCH (08:06)
[2021-07-27 11:02] VITALS: BP 132/67; PULSE 68; TEMP 97.7; O2SAT 95
== END 2021-07-27 12:17 | disposition home or self-care (01) ==
LOC: 2NENU 09:13 → EMEROOARM 09:13 → SUATTDRO 12:00 → 2NENU 12:53
PROVIDERS: ADMIT Hospitalist; ATTEND Internal Medicine

== ENCOUNTER 2021-08-23 20:03 | Inpatient (IN) ==
[2021-08-23] MEDS ORDERED: 0.9 % Sodium Chloride 1,000 ML IVC ONE ×2 (20:15→22:00)
[2021-08-23] MEDS ORDERED: Ondansetron 4 MG/2 ML VIAL IVP ONE (20:15)
[2021-08-23] MEDS ORDERED: Iopamidol - 370 500 ML MLS IVP ONE (20:16)
[2021-08-23 20:44] LABS: Basophils % 0.3 %; Eosinophils % 0.2 %; Hemoglobin 8.9 g/dL (11.5-15.4); Immature Granulocytes % 0.6 % (0-4); Lymphocytes # 1.2 K/mcL (0.6-4.6); Lymphocytes % 18.5 %; Mean Corpuscular HGB Conc 27.8 g/dL (31.6-35.5); Mean Corpuscular Hemoglobin 20.9 pg (28.0-33.3); Mean Corpuscular Volume 75.1 fL (83.0-100.0); Monocytes # 0.6 K/mcL (0.0-1.3); Monocytes % 9.6 %; Neutrophils # 4.6 K/mcL (1.6-8.9); Nucleated Red Blood Cells 0.5 /100 WBC (0); Platelet Count 306 K/mcL (140-400); Red Blood Count 4.26 M/mcL (3.82-4.97); Segmented Neutrophils % 70.8 %; White Blood Count 6.5 K/mcL (4.3-11.1)
[2021-08-23 20:45] LABS: Hypochromasia Present (Not Present)
[2021-08-23 21:07] LABS: Alanine Aminotransferase 26 Units/L (7-52); Albumin 3.8 g/dL (3.5-5.7); Albumin/Globulin Ratio 1.7 (1.1-2.2); Alkaline Phosphatase 94 Units/L (34-104); Amylase 24 Units/L (29-103); Aspartate Amino Transferase 50 Units/L (13-39); BUN/Creatinine Ratio 11 (6-26); Bilirubin,Direct 0.2 mg/dL (0.0-0.2); Bilirubin,Indirect 0.7 mg/dL (0.0-1.0); Bilirubin,Total 0.9 mg/dL (0.3-1.0); Blood Urea Nitrogen 10 mg/dL (8-23); Carbon Dioxide 29 mEq/L (23-29); Chloride 91 mEq/L (98-107); Globulin 2.3 g/dL (2.4-3.5); Glucose 138 mg/dL (70-105); Lipase 33 Units/L (11-82); Osmolality,Calculated 283 (280-300); Potassium 2.3 mEq/L (3.5-5.1); Sodium 136 mEq/L (136-145); Total Protein 6.1 g/dL (6.4-8.9); eGFR For African Americans > 60 (> 60); eGFR For Non-African Americans 58 (> 60)
[2021-08-23] MEDS ORDERED: Ketorolac 30 MG/ML VIAL IVP STA (21:18)
[2021-08-23 21:29] LABS: Magnesium 1.8 mg/dL (1.6-2.6)
[2021-08-23 21:43] LABS: Influenza A PCR Negative (Negative); Influenza B PCR Negative (Negative); Resp. Syncytial Virus PCR Negative (Negative)
[2021-08-23 21:44] LABS: SARS-CoV-2 by PCR (In House) Positive (Negative)
[2021-08-23 22:44] LABS: Bilirubin,Urine Negative (Negative); Blood,Urine Small (Negative); Clarity,Urine Turbid (Clear); Color,Urine Yellow (Yellow); Glucose,Urine (UA) Normal (Normal); Hyaline Casts,Urine Few per lpf (None Seen); Ketones,Urine 40 mg/dL (Negative); Leukocyte Esterase,Urine Large (Negative); Mucus,Urine Few per lpf (None-Few); Nitrite,Urine Negative (Negative); PH,Urine 6.5 pH Units (5.0-8.0); Protein,Urine >=300 mg/dL (Neg-Trace); RBC,Urine 0-3 per hpf (0-3); Specific Gravity,Urine 1.028 (1.010-1.025); Urobilinogen,Urine Normal (Normal); WBC,Urine TNTC per hpf (0-3)
[2021-08-23] MEDS ORDERED: Naloxone 0.4 MG/ML INJ IVP PRN (22:50)
[2021-08-23] MEDS ORDERED: Acetaminophen 325 MG TABLET PO PRN (22:50)
[2021-08-23] MEDS ORDERED: Melatonin 3 MG TABLET PO PRN (22:50)
[2021-08-23] MEDS ORDERED: Ondansetron 4 MG/2 ML VIAL IVP PRN (22:50)
[2021-08-23] MEDS ORDERED: Albuterol 2.5 MG/3 ML NEBULIZER IH PRN (22:55)
[2021-08-24] MEDS ORDERED: Lidocaine 2% Syringe 100 MG/5 ML IVP ONE (00:07)
[2021-08-24] MEDS ORDERED: 0.9 % Sodium Chloride 1,000 ML IVC SCH (00:30)
[2021-08-24] MEDS ORDERED: Dexamethasone Sodium Phos/PF 10 MG/ML VIAL IVP SCH (01:00)
[2021-08-24 01:11] LABS: Phosphorous 2.9 mg/dL (2.7-4.5)
[2021-08-24 01:35] LABS: Troponin I 0.15 ng/mL (< 0.04)
[2021-08-24 02:04] LABS: Potassium,Urine 41.6 mEq/L
[2021-08-24] MEDS ORDERED: Cefepime HCl 2,000 MG in 0.9 % Sodium Chloride 10 ML IVP SCH (06:00)
[2021-08-24] MEDS ORDERED: *HR* Heparin 5,000 UNIT/ML VIAL SQ SCH (06:00)
[2021-08-24 08:40] LABS: Hematocrit 32.1 % (35.3-44.9); Hemoglobin 8.8 g/dL (11.5-15.4); Mean Corpuscular HGB Conc 27.4 g/dL (31.6-35.5); Mean Corpuscular Hemoglobin 21.3 pg (28.0-33.3); Mean Corpuscular Volume 77.5 fL (83.0-100.0); Mean Platelet Volume 10.9 fL (9.4-12.4); Platelet Count 317 K/mcL (140-400); Red Blood Count 4.14 M/mcL (3.82-4.97); Red Cell Distribution Width 18.3 % (11.5-14.5); White Blood Count 9.6 K/mcL (4.3-11.1)
[2021-08-24] MEDS ORDERED: Chlorhexidine Rinse 15 ML MOUTHWASH MM SCH (09:00)
[2021-08-24] MEDS ORDERED: amLODIPine 5 MG TABLET PO SCH (09:00)
[2021-08-24 09:04] LABS: Calcium 7.7 mg/dL (8.6-10.3); Magnesium 1.9 mg/dL (1.6-2.6); Potassium 3.7 mEq/L (3.5-5.1); Troponin I 0.19 ng/mL (< 0.04)
[2021-08-24] MEDS ORDERED: Ipratropium 1 PUFF INHALER IH PRN (09:11)
[2021-08-24] MEDS ORDERED: Aspirin 81 MG TAB.CHEW PO SCH (09:30)
[2021-08-24 10:39] VITALS: BP 156/97; PULSE 104; TEMP 98.4; O2SAT 92
[2021-08-24 10:54] LABS: ABG Base Excess -6 mEq/L (-2 to 3); ABG HCO3 16 mEq/L (21-27); ABG Oxygen Saturation 93 % (95-98); ABG PCO2 21 mmHg (35-45); ABG PH 7.49 pH Units (7.32-7.45); ABG PO2 60 mmHg (85-104); ABG TCO2 17 mEq/L (20-26)
[2021-08-24 10:54] LABS: Estimated Average Glucose 126 mg/dl
[2021-08-24] MEDS ORDERED: Artificial Tears SOLN 15 ML BOTTLE BOTH EYES SCH (21:00)
== END 2021-08-24 12:01 | disposition expired | DRG 178 ==
LOC: EMEROOARM 20:03 → 2ANU 20:03
PROVIDERS: ADMIT Internal Medicine; ATTEND Internal Medicine